=== PATIENT | female | born 1950 | race Two or more races ===

== ENCOUNTER → 2017-01-24 | Outpatient (CLI) | payer MEDICARE, OTHER | END | disposition home or self-care (01) | LOC: Rad HDHVI 15:07 | PROVIDERS: ATTEND Internal Medicine Cardiovascular Disease | DX: Z01.818 Encounter for other preprocedural examination (principal) | CPT/HCPCS: 93306 ==

== ENCOUNTER → 2017-01-25 | Outpatient (CLI) | payer MEDICARE, OTHER ==
[~2017-01-25] MED LIST: ADENOSINE 90 MG/30 ML INJ IV ONE; ADENOSINE 95 MG in GIVE UN-DILUTED 0 ML IV ONE
== END | disposition home or self-care (01) ==
LOC: Rad HDHVI 08:36
PROVIDERS: ATTEND Internal Medicine Cardiovascular Disease
DX: I10 Essential (primary) hypertension (principal); E78.00 Pure hypercholesterolemia, unspecified; R53.81 Other malaise
CPT/HCPCS: 78452; 93005; 96374; 96375; A9500; J0153

== ENCOUNTER 2023-07-20 20:58 | Emergency (ER) | payer MEDICARE, OTHER ==
[~2023-07-20] VITALS: Ht 170.2 cm; Wt 120.0 kg
[2023-07-20 22:10] LABS: Hemoglobin 9.1 g/dL (12.2-16.2)
[2023-07-20 22:12] LABS: Hematocrit 27.3 % (36.0-46.0); Mean Corpuscular Hemoglobin 30.5 pg (28.0-32.0); Mean Corpuscular Hgb Conc. 33.2 g/dL (32.0-36.0); Mean Corpuscular Volume 91.7 fL (80.0-100.0); Red Blood Cells 2.98 10^6/uL (4.0-5.20)
[2023-07-20 22:24] LABS: Alanine Aminotransferase 20 U/L (7-40); Albumin 2.9 g/dL (3.2-4.8); Alkaline Phosphatase 125 U/L (46-116); Anion Gap 4.9 (5-15); Aspartate Aminotransferase 26 U/L (13-40); BUN/Creatinine Ratio 24.6 (10.0-20.0); Bilirubin, Total 1.2 mg/dL (0.2-1.0); Blood Urea Nitrogen 15 mg/dL (9-23); Calcium 8.2 mg/dL (8.5-10.1); Carbon Dioxide 26.1 mmol/L (20-30); Chloride 109 mmol/L (98-107); Glucose 111 mg/dL (74-106); Magnesium 1.6 mg/dL (1.6-2.6); Potassium 3.5 mmol/L (3.5-5.1); Sodium 140 mmol/L (136-145); Total Protein 5.4 g/dL (5.7-8.2)
[2023-07-20 22:36] LABS: Red Cell Distribution Width 20.9 % (11.8-14.3)
[2023-07-20 22:40] LABS: White Blood Cell 0.3 10^3/uL (4.4-10.8)
[2023-07-20 22:44] LABS: INR 1.11 (0.9-1.15); Prothrombin Time 11.6 sec (9.3-11.8)
[2023-07-20 23:10] LABS: Band Neutrophils % (manual) 0; Basophils % (manual) 0 (0.0-2.0); Blast Cells 0; Eosinophils % (manual) 0 (0-7); Metamyelocytes % 0; Myelocytes % 0; Promyelocytes % 0; Reactive Lymphocytes 0
[2023-07-20 23:11] LABS: Anisocytosis Slight; Lymphocytes % (manual) 95 (10.0-50.0); Monocytes % (manual) 2 (0-12); Ovalocytes FEW; Platelet Estimate Decreased; Tear Drop Cells FEW
[2023-07-20 23:30] VITALS: TEMP 97.7
[2023-07-21 00:09] VITALS: O2SAT 97
[2023-07-21 01:30] VITALS: BP 164/98; PULSE 67; RESP 18; O2SAT 98
== END 2023-07-21 02:16 | disposition home or self-care (01) ==
LOC: EDBD 20:58 → ER 20:58
DX: R04.0 Epistaxis (principal); D70.9 Neutropenia, unspecified; D61.818 Other pancytopenia; I48.91 Unspecified atrial fibrillation; E78.5 Hyperlipidemia, unspecified; I10 Essential (primary) hypertension; Z91.040 Latex allergy status
CPT/HCPCS: 36415; 80053; 83735; 83880; 84484; 85007; 85027; 85610; 85730; 93005